=== PATIENT | male | born 1985 | race Caucasian/White ===

== ENCOUNTER 2019-05-31 17:09 | Emergency (ER) | payer OTHER ==
--- NOTE | 2019-05-31 17:35 | EDM.PDOC ---
ED HPI GENERAL MEDICAL PROBLEM - General Chief Complaint: Upper Extremity Injury/Pain Stated Complaint: R HAND CONTUSION 5 DAYS POST SKIN GRAFT Time Seen by Provider: 05/31/19 17:20 Source of Information: Reports: Patient History Limitations: Reports: No Limitations - History of Present Illness INITIAL COMMENTS - FREE TEXT/NARRATIVE: pt is here for right hand injury, accidently hit his right hand on a shelve at [facility], pt has a soft tissue swelling, denies any other injuries or any other concerns. pt has recent sever pollard at his hands and he is status post skin grafting of his pollard few days ago. Review of Systems - Review of Systems Review Of Systems: See Below Respiratory: Reports: No Symptoms Cardiovascular: Reports: No Symptoms ED EXAM, GENERAL - Physical Exam Exam: See Below Exam Limited By: No Limitations General Appearance: Alert, No Apparent Distress Respiratory/Chest: No Respiratory Distress, Lungs Clear Cardiovascular: Normal Peripheral Pulses, Regular Rate, Rhythm GI/Abdominal: Soft, Non-Tender Extremities: Other (skin grafts at dorsum of his hands are healing well, pt has a 2X2 cm hematoma at dorsum of right hand, no bone tendernss, pt has nl ROM , rest of RUE exam is nl. ) Course - Vital Signs Text/Narrative:: hematoma at right hand is superficial and was aspirated after prepping the affected area with Betadine using 18 tye needle, aspirate was for blood, pressure dressing was then applied. pt to follow with his surgeon as planned and to monitor for signs of infection. Departure - Departure Time of Disposition: 17:35 Disposition: Home, Self-Care 01 Clinical Impression: Traumatic hematoma of hand - Discharge Information Referrals: PCP,None [Primary Care Provider] -
== END 2019-05-31 17:50 | disposition home or self-care (01) ==
LOC: FB.ED 17:09
DX: S60.221A Contusion of right hand, initial encounter (principal); W22.8XXA Striking against or struck by other objects, initial encounter
CPT/HCPCS: 10160; 99283-25